=== PATIENT | male | born 1955 | race Caucasian/White ===

== ENCOUNTER 2016-12-06 07:08 | Inpatient (IN) | payer BC ==
[~2016-12-06] VITALS: Ht 182.9 cm; Wt 126.1 kg
--- NOTE | ~2016-12-06 | HC ---
[facility] [place] [address] CONSULTATION Name: FAZAL WOOTEN Room #: 401-I ADM IN .R.#: [id number] Admission: 12/06/16 Attend Phys: Luis Rome MD Discharge: Date of : 55 Report #: [id number] THIS REPORT FOR: //name// CC: Fazal Rome DATE OF SERVICE: 12/07/2016 REFERRING PROVIDER: Luis Rome M.D. REASON FOR CONSULTATION: Abdominal pain. HISTORY OF PRESENT ILLNESS: The patient is a 61-year-old male who was in his usual state of health until yesterday when he presented to the emergency room with a 2-day history of severe epigastric and back pain. The patient took ibuprofen, which did not provide any relief and upon presenting to the Emergency Room, was found to have an elevated total bilirubin to 2.4 as well as elevated liver function enzymes and lipase of nearly 1500. As such, the patient has been admitted with a presumptive diagnosis of gallstone pancreatitis and I am asked to evaluate. His workup has included a CT scan of the abdomen and pelvis showing gallstones and peripancreatic stranding consistent with pancreatitis. In addition, his abdominal ultrasound showed gallstones without evidence of cholecystitis whatsoever and normal bile ducts. MRCP done earlier today shows peripancreatic stranding consistent with pancreatitis and multiple layering gallstones within the gallbladder, but no evidence of cholecystitis or ductal dilatation or filling defects within the common bile duct. The patient's lipase has improved to 903 today from 1498 yesterday, although he continues with severe epigastric and mid back pain. PAST MEDICAL HISTORY: None. PAST SURGICAL HISTORY: Inguinal hernia repair. HOME MEDICATIONS: None. ALLERGIES: No known drug allergies. FAMILY HISTORY: Reviewed and noncontributory. SOCIAL HISTORY: The patient smokes 1 pack per day and has done so for several years, does not use alcohol or illicit drugs. REVIEW OF SYSTEMS: GENERAL: The patient denies nocturnal fevers or chills. HEENT: No change in vision, change in hearing. NECK: No swelling or difficulty swallowing. [facility] [address] [place] [address] CONSULTATION Name: FAZAL WOOTEN Room #: 401-I [facility] IN .R.#: [id number] Admission: 12/06/16 Attend Phys: Luis Rome MD Discharge: Date of : 55 Report #: [id number] HEART: No chest pain or palpitations. LUNGS: No cough or shortness of breath. ABDOMEN: Abdominal pain and nausea. GENITOURINARY: No dysuria or hematuria. ENDOCRINE: No polyuria, polydipsia. HEMATOLOGIC: No history of bleeding or easy bruising. EXTREMITIES: No history weakness or limited range of motion. NEUROLOGIC: No history of syncope or near syncopal episodes. SKIN AND INTEGUMENT: No history of abnormal lesions or moles. PSYCHIATRIC: No history of anxiety or depression. PHYSICAL EXAMINATION: VITAL SIGNS: Temperature 98.0, pulse 48, respirations 18, blood pressure 138/79. He stands 6 feet 3 inches tall and weighs 278 pounds. GENERAL: Alert and oriented, in minimal distress. HEENT: Normocephalic, atraumatic. Pupils equal, round, reactive to light. NECK: Supple, without lymphadenopathy. Trachea midline. HEART: Regular rate and rhythm. LUNGS: Clear to auscultation bilaterally. ABDOMEN: Soft, nondistended. He does have tenderness to palpation in the epigastrium with minimal guarding, but no rebound. He has normal active bowel sounds. GENITOURINARY: Normal external male genitalia. EXTREMITIES: No clubbing, cyanosis or edema. NEUROLOGIC: Cranial nerves 2-12 are grossly intact. PSYCHIATRIC: Normal mood and affect. SKIN AND INTEGUMENT: No abnormal lesions or moles. LABORATORY AND X-RAY DATA: CBC shows white blood cell count of 9.3 thousand, hemoglobin 15.4, platelets 183,000. Creatinine is 0.7. Liver function enzymes are still elevated, but have improved with an AST now at 91, ALT 212, alkaline phosphatase 113 with a total bilirubin of 1.6 down from 2.4 yesterday. Lipase is improved to 9[address] scan of the abdomen and pelvis, ultrasound of the abdomen and MRCP as per HPI show gallstones with pancreatitis, but no filling defects. ASSESSMENT AND PLAN: A 61-year-old overweight male with gallstones and gallstone pancreatitis. At this time, the patient continues with epigastric and mid back pain that is being treated symptomatically with pain medications. We should continue IV fluid rehydration as well. It is reassuring that his liver function enzymes and lipase are improving with a workup showing no evidence of filling defects in the common bile duct. However, I suspect he passed a stone and is having interval improvement daily. As such, we will plan to proceed to the operating room at the first available opportunity for definitive care in the form of laparoscopic cholecystectomy with cholangiogram provided that his lipase continues to trend downwards towards normal. [address] [address] CONSULTATION Name: FAZAL WOOTEN Room #: 401-I ADM IN M.R.#: [id number] Admission: 12/06/16 Attend Phys: Luis Rome MD Discharge: Date of : 55 Report #: [id number] I sincerely appreciate this consult. I will follow closely and leave any further recommendations in the patient's chart as appropriate. <ELECTRONICALLY SIGNED> By: Ingrid Bustos MD, FACS 12/08/16 [id number] Ingrid Bustos MD, FACS /nt
[2016-12-06 07:09] VITALS: BP 134/90
[2016-12-06 07:51] LABS: CALCIUM 8.9 mg/dL (8.5-10.1); CREATININE 0.8 mg/dL (0.7-1.3); POTASSIUM 3.5 mmol/L (3.5-5.1)
[2016-12-06 07:56] LABS: ABSOLUTE NEUTROPHILS 7.6 thou/uL (1.4-8.2); BASOPHILS 0.5 % (0.0-2.0); EOSINOPHILS 3.4 % (0.0-3.0); HEMATOCRIT 49.8 % (42.0-52.0); HEMOGLOBIN 16.9 gm/dL (14.0-18.0); LYMPHOCYTES 13.6 % (24.0-44.0); MCHC 33.8 g/dL (28.0-37.0); MCV 85.7 fL (80.0-100.0); MONOCYTES 5.9 % (1.0-8.0); PLATELET COUNT 182 thou/uL (150-400); POLYS 76.6 % (36.0-66.0); RBC 5.82 mil/uL (4.50-6.00); RDW 13.8 % (10.5-14.5)
[2016-12-06 07:57] LABS: ALBUMIN 3.5 g/dL (3.4-5.0); DIRECT BILIRUBIN 1.1 mg/dL (<0.1-0.3); TOTAL BILIRUBIN 2.4 mg/dL (<0.1-1.0); TOTAL PROTEIN 7.2 g/dL (6.4-8.2)
[2016-12-06 07:59] LABS: MANUAL DIFF NO
[2016-12-06 08:47] LABS: URINE BILIRUBIN 1+ (Negative); URINE BLOOD NEGATIVE (Negative); URINE COLOR YELLOW; URINE GLUCOSE-RANDOM* NEGATIVE (Negative); URINE KETONES NEGATIVE (Negative); URINE LEUKOCYTES-REFLEX NEGATIVE (Negative); URINE PROTEIN (DIPSTICK) NEGATIVE (Negative); URINE UROBILINOGEN 0.2 E.U./dl (0.2-1.0)
[2016-12-06 08:49] LABS: ICTOTEST (BILI CONFIRMATORY) Negative (Negative)
[2016-12-06 09:20] VITALS: BP 134/90
[2016-12-06 09:45] VITALS: BP 135/74
[2016-12-06 10:49] VITALS: BP 148/65
[2016-12-06 16:12] VITALS: BP 134/71
[2016-12-06 19:47] VITALS: BP 131/72
[2016-12-07 04:14] VITALS: BP 115/66
[2016-12-07 05:25] LABS: HEMATOCRIT 45.7 % (42.0-52.0); HEMOGLOBIN 15.4 gm/dL (14.0-18.0); MCHC 33.7 g/dL (28.0-37.0); RBC 5.32 mil/uL (4.50-6.00); RDW 13.7 % (10.5-14.5); WBC 9.3 thou/uL (4.0-11.0)
[2016-12-07 05:48] LABS: CALCIUM 8.3 mg/dL (8.5-10.1); CREATININE 0.7 mg/dL (0.7-1.3); POTASSIUM 3.4 mmol/L (3.5-5.1); TOTAL BILIRUBIN 1.6 mg/dL (<0.1-1.0)
[2016-12-07 07:15] VITALS: BP 138/73
[2016-12-07 15:15] VITALS: BP 138/79
[2016-12-07 18:54] LABS: CHOLESTEROL 145 mg/dL (<200); HDL CHOLESTEROL 29 mg/dL (>40); LDL CHOLESTEROL 94 mg/dL (<100); TRIGLYCERIDE 113 mg/dL (<150); VLDL 23 mg/dL (<40)
[2016-12-07 20:14] VITALS: BP 151/82
[2016-12-08 04:22] VITALS: BP 146/72
[2016-12-08 06:35] LABS: HEMATOCRIT 42.1 % (42.0-52.0); HEMOGLOBIN 14.1 gm/dL (14.0-18.0); MCHC 33.5 g/dL (28.0-37.0); MCV 86.7 fL (80.0-100.0); RBC 4.85 mil/uL (4.50-6.00); RDW 13.6 % (10.5-14.5); WBC 9.7 thou/uL (4.0-11.0)
[2016-12-08 06:52] LABS: ALBUMIN 2.7 g/dL (3.4-5.0); CALCIUM 7.9 mg/dL (8.5-10.1); CREATININE 0.7 mg/dL (0.7-1.3); POTASSIUM 3.1 mmol/L (3.5-5.1); TOTAL BILIRUBIN 1.8 mg/dL (<0.1-1.0); TOTAL PROTEIN 6.1 g/dL (6.4-8.2)
[2016-12-08 08:17] VITALS: BP 122/69
[2016-12-08 16:11] VITALS: BP 111/62; BP 126/67
[2016-12-08 20:35] VITALS: BP 139/70
[2016-12-09 03:25] VITALS: BP 120/63
[2016-12-09 06:33] LABS: HEMATOCRIT 41.2 % (42.0-52.0); HEMOGLOBIN 13.7 gm/dL (14.0-18.0); MCH 28.7 pg (26.0-34.0); MCHC 33.2 g/dL (28.0-37.0); MCV 86.4 fL (80.0-100.0); RBC 4.77 mil/uL (4.50-6.00); RDW 13.5 % (10.5-14.5); WBC 7.6 thou/uL (4.0-11.0)
[2016-12-09 06:57] LABS: ALBUMIN 2.6 g/dL (3.4-5.0); CREATININE 0.6 mg/dL (0.7-1.3); POTASSIUM 3.5 mmol/L (3.5-5.1); TOTAL BILIRUBIN 1.2 mg/dL (<0.1-1.0); TOTAL PROTEIN 6.3 g/dL (6.4-8.2)
[2016-12-09 08:12] VITALS: BP 146/79
[2016-12-09] MEDS ORDERED: PERCOCET PO (10:32)
[2016-12-09 11:36] VITALS: BP 146/79
[2016-12-09] MEDS ORDERED: FLAGYL500 MG PO (12:35)
[2016-12-09] MEDS ORDERED: CIPRO500 MG PO (12:35)
== END 2016-12-09 12:56 | disposition home or self-care (01) | DRG 440 ==
LOC: ER 07:08 → 4N 09:14 → EROBS 09:14 → 4S 09:14 → 4N 09:45 → 4S 12-08 10:01
PROVIDERS: Emergency Medicine; Internal Medicine; Specialist; Surgery
DX: K85.10 Biliary acute pancreatitis without necrosis or infection (principal); F17.210 Nicotine dependence, cigarettes, uncomplicated; K76.0 Fatty (change of) liver, not elsewhere classified
CPT/HCPCS: 10102; 10790

== ENCOUNTER → 2020-07-23 | Outpatient (CLI) | payer OTHER, MEDICARE ==
[~2020-07-23] MED LIST: CIPRO500 MG PO; FLAGYL500 MG PO; PERCOCET PO
== END ==
LOC: PET 10:28
PROVIDERS: ATTEND Internal Medicine
DX: J98.4 Other disorders of lung (principal); R59.0 Localized enlarged lymph nodes; J43.8 Other emphysema; J94.8 Other specified pleural conditions; K76.0 Fatty (change of) liver, not elsewhere classified; Z90.49 Acquired absence of other specified parts of digestive tract